=== PATIENT | male | born 1950 | race Caucasian/White ===

== ENCOUNTER 2019-05-24 15:49 | Emergency (ER) | payer OTHER, MEDICARE ==
[2019-05-24 16:05] VITALS: BP 171/101; PULSE 62; TEMP 98.5; BMI 26.4
[2019-05-24] MEDS ORDERED: ACETAMINOPHEN 325 MG TABLET (FP) PO ONE (16:37)
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
[2019-05-24] MEDS ORDERED: ACETAMINOPHEN 325 MG TABLET (FP) ONE (17:19)
== END 2019-05-24 18:05 | disposition home or self-care (01) ==
LOC: FER 15:49
DX: V29.00XA Motorcycle driver injured in collision with unspecified motor vehicles in nontraffic accident, initial encounter (principal); Y93.89 Activity, other specified; Y92.410 Unspecified street and highway as the place of occurrence of the external cause; I10 Essential (primary) hypertension
CPT/HCPCS: 73070-TC-RT-FY; 73090-TC-RT-FY; 73610-TC-RT-FY; 99282-25

== ENCOUNTER 2021-10-26 08:34 | Emergency (ER) | payer OTHER, BC ==
[2021-10-26 08:44] VITALS: BP 140/65; PULSE 68; TEMP 97.9; BMI 25.7
== END 2021-10-26 09:27 | disposition home or self-care (01) ==
LOC: FER 08:34
PROC: 0HQEXZZ Repair Left Lower Arm Skin, External Approach (ICD-10-PCS; principal; 2021-10-26)
DX: S51.812A Laceration without foreign body of left forearm, initial encounter (principal); W26.0XXA Contact with knife, initial encounter
CPT/HCPCS: 99282-25

== ENCOUNTER 2021-11-02 08:47 | Emergency (ER) | payer OTHER, BC ==
[2021-11-02 08:53] VITALS: BP 174/63; PULSE 66; TEMP 97.5; BMI 25.0
== END 2021-11-02 09:06 | disposition home or self-care (01) ==
LOC: FER 08:47
DX: Z48.02 Encounter for removal of sutures (principal)
CPT/HCPCS: 99281-25

== ENCOUNTER 2024-01-28 13:39 | Emergency (ER) | payer OTHER, MEDICARE ==
[2024-01-28 14:20] VITALS: BP 171/95; PULSE 87; RESP 18; TEMP 97.8; BMI 25.7
[2024-01-28] MEDS ORDERED: DIPHTH,PERTUSS(ACELL),TET 0.5 ML DISP.SYRIN IM ONE (14:26)
[2024-01-28] MEDS ORDERED: CEPHALEXIN MONOHYDRATE 500 MG CAPSULE (UD) ONE (14:27)
[2024-01-28] MEDS: DIPHTH,PERTUSS(ACELL),TET 0.5 ML DISP.SYRIN IM ONE (15:14)
[2024-01-28] MEDS: CEPHALEXIN MONOHYDRATE 500 MG CAPSULE (UD) PO ONE (15:15)
== END 2024-01-28 15:16 | disposition home or self-care (01) ==
LOC: FER 13:39
PROC: 0HQFXZZ Repair Right Hand Skin, External Approach (ICD-10-PCS; principal; 2024-01-28)
PROC: 3E0234Z Introduction of Serum, Toxoid and Vaccine into Muscle, Percutaneous Approach (ICD-10-PCS; 2024-01-28)
DX: S61.111A Laceration without foreign body of right thumb with damage to nail, initial encounter (principal); W31.2XXA Contact with powered woodworking and forming machines, initial encounter
CPT/HCPCS: 12002-25; 90471; 90715; 99284-25

== ENCOUNTER 2024-02-11 13:03 | Emergency (ER) | payer OTHER, MEDICARE ==
[2024-02-11 13:39] VITALS: BP 131/72; PULSE 80; RESP 16; TEMP 97.9; BMI 25.0
== END 2024-02-11 14:11 | disposition home or self-care (01) ==
LOC: FER 13:03
DX: Z48.02 Encounter for removal of sutures (principal)
CPT/HCPCS: 99281-25